=== PATIENT | female | born 1975 | race Caucasian/White ===

== ENCOUNTER 2016-09-03 09:44 | Emergency (ER) | payer OTHER ==
[~2016-09-03] VITALS: Ht 162.6 cm; Wt 102.1 kg
[~2016-09-03 09:44] MED LIST: ADDERALL 10 MG10 MG PO; AMBIEN 10 MG TA10 MG PO; AMBIEN 5 MG TABL5 M1 PO; ATIVAN1 MG PO; CARAFATE 1 GM TA1 G1 PO; CYMBALTA60 MG PO; KEPPRA 500 MG500 M2 PO; LASIX 40 MG TAB40 M1 PO; LYRICA 50 MG50 MG PO; MEDROL4 MG; MEDROLDOSEPACK PO; MIRALAX255 GM; MS CONTIN15 MG PO; NORCO 5-325 TA1 EACH PO; OMEPRAZOLE 20 M20 M1 PO; PAIN & FEVER325 MG PO; PERCOCET 5-3251 EACH PO; SEROQUEL XR 30300 M1 PO; THERAGRAN-M AD1 EACH PO; ZANTAC 150MG T150 M1 PO
[2016-09-03 10:12] LABS: HEMATOCRIT 39.1 % (37.0-47.0); HEMOGLOBIN 12.7 gm/dL (12.0-15.0); MCH 26.6 pg (26.0-34.0); MCHC 32.6 g/dL (28.0-37.0); MCV 81.6 fL (80.0-100.0); PLATELET COUNT 249 thou/uL (150-400); RBC 4.79 mil/uL (4.20-5.00); RDW 16.1 % (10.5-14.5); WBC 5.5 thou/uL (4.0-11.0)
[2016-09-03 10:14] LABS: MANUAL DIFF YES
[2016-09-03 10:22] LABS: ANION GAP 8 mmol/L (7-16); BUN 10 mg/dL (7-18); CALCIUM 8.3 mg/dL (8.5-10.1); CHLORIDE 104 mmol/L (98-107); CO2 25 mmol/L (21-32); CREATININE 0.8 mg/dL (0.6-1.3); GLUCOSE 92 mg/dL (70-99); SODIUM 137 mmol/L (136-145)
[2016-09-03 10:27] LABS: ALBUMIN 3.5 g/dL (3.4-5.0); ALKALINE PHOSPHATASE 110 U/L (46-116); DIRECT BILIRUBIN < 0.1 mg/dL (<0.1-0.3); SGOT 32 U/L (15-37); SGPT 49 U/L (30-65); TOTAL BILIRUBIN 0.2 mg/dL (<0.1-1.0); TOTAL PROTEIN 6.9 g/dL (6.4-8.2)
[2016-09-03 10:57] LABS: ABSOLUTE NEUTROPHILS 3.4 thou/uL (1.4-8.2); ANISOCYTOSIS 1+; TOTAL CELL COUNT 100
[2016-09-03] MEDS ORDERED: CITRATE OF MAG296 ML PO (11:36)
[2016-09-03] MEDS ORDERED: COLACE100 MG PO (11:36)
[2016-09-03] MEDS ORDERED: CARAFATE 1 GM TA1 G1 PO (11:50)
[2016-09-03] MEDS ORDERED: ZOFRAN ODT4 MG PO (11:50)
[2016-09-03] MEDS ORDERED: CYTOTEC200 MCG PO (11:50)
[2016-09-03 12:00] VITALS: BP 108/71
== END 2016-09-03 12:02 | disposition home or self-care (01) ==
LOC: ER 09:44
PROVIDERS: Emergency Medicine
DX: K59.00 Constipation, unspecified (principal); G35 Multiple sclerosis; Z98.84 Bariatric surgery status; Z88.6 Allergy status to analgesic agent; Z88.5 Allergy status to narcotic agent; Z88.8 Allergy status to other drugs, medicaments and biological substances